=== PATIENT | male | born 1960 | race Caucasian/White ===

== ENCOUNTER → 2018-08-15 | Outpatient (CLI) | payer BC ==
[2018-08-15 16:38] LABS: BASO # 0.1 10*3/uL (0.0-0.1); BASO % 1.1 % (0.0-1.0); EOS # 0.2 10*3/uL (0.0-0.4); EOS % 2.9 % (1.0-4.0); HEMATOCRIT 44.7 % (42.0-52.0); HEMOGLOBIN 14.4 g/dl (14.0-18.0); LYMPH # 1.6 10*3/uL (1.3-4.4); LYMPH % 21.8 % (27.0-41.0); MEAN CELL VOLUME 94.7 fl (80.0-94.0); MEAN CORPUSCULAR HGB 30.5 pg (27.0-31.0); MEAN CORPUSCULAR HGB CONC 32.2 g/dl (33.0-37.0); MEAN PLATELET VOLUME 9.3 fl (9.6-12.3); MONO # 0.5 10*3/uL (0.1-1.0); MONO % 6.6 % (3.0-9.0); NEUT # 4.8 10*3/uL (2.3-7.9); NEUT % 67.3 % (47.0-73.0); PLATELET COUNT AUTOMATED 318 10*3/uL (130-400); RED BLOOD COUNT 4.72 10*6/uL (4.50-5.90); RED CELL DISTRI WIDTH 13.7 % (0-14.5); WHITE BLOOD COUNT 7.2 10*3/uL (4.8-10.8)
[2018-08-16 07:08] LABS: HEPATITIS B SURFACE AG Negative (Negative); HEPATITIS C VIRUS ANTIBODY <0.1 s/co (0.0-0.9)
[2018-08-16 08:10] LABS: RHEUMATOID ARTHRITIS FACTOR <10.0 IU/mL (0.0-13.9)
[2018-08-16 12:05] LABS: ANTI-RNP ANTIBODIES <0.2 AI (0.0-0.9)
[2018-08-16 22:08] LABS: CCP ANTIBODIES IGG/IGA 3 units (0-19)
[2018-08-17 01:05] LABS: PTT-LA 34.2 sec (0.0-51.9)
[2018-08-17 03:09] LABS: LUPUS REFLEX INTERPRETATION Comment: (.)
[2018-08-21 11:05] LABS: HLA-B27 ANTIGEN Negative (.)
== END | disposition home or self-care (01) ==
LOC: LAB 15:54
PROVIDERS: Orthopaedic Surgery
DX: M25.50 Pain in unspecified joint (principal)

== ENCOUNTER 2023-02-11 09:29 | Emergency (ER) | payer BC ==
[~2023-02-11] VITALS: Ht 175.2 cm; Wt 90.7 kg
[2023-02-11 10:09] LABS: BILIRUBIN Negative (Negative); BLOOD Negative (Negative); CLARITY Clear (Clear); COLOR Yellow (Yellow); GLUCOSE Negative (Negative); KETONE Negative (Negative); LEUKO ESTERASE Negative (Negative); NITRITE Negative (Negative); UROBILINOGEN 0.2 E.U./dl (0.0-1.0)
[2023-02-11 10:25] LABS: CALCIUM OXALATE CRYSTALS Trace; WBC 0-2 wbc/hpf (0-5)
[2023-02-11 10:26] LABS: BACTERIA TRACE; MUCOUS 1+
[2023-02-11 11:36] LABS: BASO # 0.1 10*3/uL (0.0-0.1); BASO % 0.8 % (0.0-1.0); EOS # 0.2 10*3/uL (0.0-0.4); EOS % 3.2 % (1.0-4.0); HEMATOCRIT 43.5 % (42.0-52.0); LYMPH % 13.6 % (27.0-41.0); MEAN CELL VOLUME 93.3 fl (80.0-94.0); MEAN CORPUSCULAR HGB 30.9 pg (27.0-31.0); MEAN CORPUSCULAR HGB CONC 33.1 g/dl (33.0-37.0); MEAN PLATELET VOLUME 9.2 fl (9.6-12.3); MONO # 0.5 10*3/uL (0.1-1.0); MONO % 7.4 % (3.0-9.0); NEUT # 5.4 10*3/uL (2.3-7.9); NEUT % 74.7 % (47.0-73.0); PLATELET COUNT AUTOMATED 301 10*3/uL (130-400); RED BLOOD COUNT 4.66 10*6/uL (4.50-5.90); RED CELL DISTRI WIDTH 13.3 % (0-14.5); WHITE BLOOD COUNT 7.3 10*3/uL (4.8-10.8)
[2023-02-11 12:04] LABS: ALKALINE PHOSPHATASE 71 U/L (46-116); BUN 13 mg/dl (9-23); CHLORIDE 108 mmol/L (98-107); POTASSIUM 4.1 mmol/L (3.4-5.1); SGPT/ALT 11 U/L (10-49); TOTAL PROTEIN 6.7 gm/dL (6.0-8.0)
[2023-02-11] MEDS ORDERED: ZANAFLEX4 MG PO (12:47)
[2023-02-11] MEDS ORDERED: ANAPROX DS550 MG PO (12:47)
== END 2023-02-11 13:01 | disposition home or self-care (01) ==
LOC: ED 09:29
PROVIDERS: Family Medicine
DX: M62.830 Muscle spasm of back (principal); N40.0 Benign prostatic hyperplasia without lower urinary tract symptoms; Z87.442 Personal history of urinary calculi

== ENCOUNTER 2024-07-08 15:51 | Emergency (ER) | payer MEDICARE ==
[~2024-07-08] VITALS: Ht 175.2 cm; Wt 90.7 kg
[~2024-07-08 15:51] MED LIST: ANAPROX DS550 MG PO; ZANAFLEX4 MG PO
[2024-07-08] MEDS ORDERED: SIMVASTATIN10 MG PO (16:17)
[2024-07-08] MEDS ORDERED: Tdap Vaccine 0.5 ML SYR (Adult Vaccine) IM ONE (17:25)
[2024-07-08] MEDS ORDERED: Lidocaine Hydrochloride 5 ML AMP SC ONE ×2 (17:40→18:10)
[2024-07-08] MEDS ORDERED: Bacitracin Zinc 14 GM TUBE T ONE (17:45)
[2024-07-08] MEDS ORDERED: Amoxicillin/Clavulanate Pota 875 MG TAB PO ONE (17:55)
[2024-07-08] MEDS ORDERED: Acetaminophen/Oxycodone 5 MG/325 MG TABLET PO ONE (17:55)
[2024-07-08] MEDS ORDERED: AMOX-CLAV 875-1 EACH PO (18:38)
== END 2024-07-08 19:10 | disposition home or self-care (01) ==
LOC: ED 15:51
DX: S61.210A Laceration without foreign body of right index finger without damage to nail, initial encounter (principal); Z87.442 Personal history of urinary calculi; W22.8XXA Striking against or struck by other objects, initial encounter; Y93.89 Activity, other specified; Y92.89 Other specified places as the place of occurrence of the external cause; Y99.8 Other external cause status